=== PATIENT | male | born 1950 | race Native Hawaiian/Other Pacific Islander ===

== ENCOUNTER 2017-12-07 07:18 | Day surgery (SDC) | payer MEDICARE, OTHER ==
[2014-01-15 06:59] VITALS: BMI 19.3
[2017-12-07] MEDS ORDERED: Lidocaine/Epinephrine 1% 1:100000 10 ML IJ ONE (07:26)
[2017-12-07] MEDS ORDERED: Bupivacaine 0.25% 20 ML INJ IJ ONE (07:26)
[2017-12-07 07:50] VITALS: BP 137/75; PULSE 104; RESP 20; TEMP 97.8; O2SAT 96
== END 2017-12-07 10:15 | disposition home or self-care (01) ==
LOC: C.SDS 07:18
PROVIDERS: ATTEND Surgery Surgical Critical Care
DX: K40.90 Unilateral inguinal hernia, without obstruction or gangrene, not specified as recurrent (principal); Z53.9 Procedure and treatment not carried out, unspecified reason

== ENCOUNTER 2017-12-19 06:10 | Day surgery (SDC) | payer MEDICARE, OTHER ==
[2014-01-15 06:59] VITALS: BMI 19.3
[2017-12-19] MEDS ORDERED: ceFAZolin 1 gm FROZEN Premix 2 GM/100 ML ML IVPB ONE (07:26)
[2017-12-19] MEDS ORDERED: Bupivacaine HCl 0.25% PF (10 ml) Inj ONE (07:26)
[2017-12-19] MEDS ORDERED: Lidocaine/Epinephrine 1% 1:100000 10 ML IJ ONE (07:26)
[2017-12-19] MEDS ORDERED: Propofol 10 mg/ml Inj (20 ML) ONE (08:40)
[2017-12-19] MEDS ORDERED: Midazolam 2 MG/2 ML VIAL ONE (08:40)
[2017-12-19] MEDS ORDERED: Rocuronium 10 mg/ml (5 ml) ONE ×2 (08:52→11:46)
[2017-12-19] MEDS: Bupivacaine 0.25% 20 ML INJ IJ ONE ×2 (10:37→12:08)
[2017-12-19] MEDS ORDERED: Esmolol 100 mg/10ml Inj IV ONE (11:03)
[2017-12-19] MEDS ORDERED: Oxycodone/Acetaminophen 5/325 mg Tab PO PRN (12:55)
[2017-12-19] MEDS ORDERED: HYDROmorphone 0.5 mg/0.5 ml ISec IVP PRN (12:56)
--- NOTE | 2017-12-19 13:00 | PCM.SURG1 ---
Surgeon's Initial Post Op Note - Surgeon's Notes Surgeon: Dr. Yoav Reed MD [employer]ob[employer] Repairer: Dr. Mare Liz, PGY2; [facility] [place]-[facility] Type of Anesthesia: General Endo Pre-Operative Diagnosis: Bilateral inguinal hernia Operative Findings: Bilateral indirect inguinal hernia Post-Operative Diagnosis: Same Operation Performed: Robotic assisted Laparoscopic bilateral inguinal hernia repair with mesh Specimen/Specimens Removed: None Estimated Blood Loss: EBL {In ML}: 10 Blood Products Given: N/A Drains Used: No Drains Post-Op Condition: Fair Date of Surgery/Procedure: 12/19/17 Time of Surgery/Procedure: 10:00
[2017-12-19] MEDS ORDERED: Lactated Ringer's 1,000 ML IV ONE (14:00)
[2017-12-19 15:26] VITALS: TEMP 97.7
[2017-12-19 16:41] VITALS: BP 138/78; PULSE 89; RESP 18; O2SAT 96
--- NOTE | 2017-12-22 19:40 | OP ---
PROCEDURE DATE: 12/19/2017 PREOPERATIVE DIAGNOSIS: Bilateral inguinal hernia. POSTOPERATIVE DIAGNOSIS: Bilateral inguinal hernia. PROCEDURES PERFORMED: 1. Robotic right inguinal hernia repair with mesh. 2. Robotic left inguinal hernia repair with mesh. 3. Laparoscopic bilateral TAP block placement. SURGEON: Yoav Reed MD. [employer] CLERK: Mare Liz, PGY-3 resident. ANESTHESIA: General endotracheal tube anesthesia. ESTIMATED BLOOD LOSS: Around 10 mL. DRAINS: None. PATHOLOGY: None. COMPLICATIONS None. INTRAOPERATIVE FINDINGS: The patient had bilateral direct inguinal hernia. DESCRIPTION OF PROCEDURE: On intraoperative steps, this 67-year-old male who was diagnosed with bilateral inguinal hernia and the patient was consented for the robotic bilateral inguinal hernia repair with the mesh, brought to the OR, placed supine on operating table. After induction of anesthesia, the abdomen was prepped and draped in the usual sterile fashion. The supraumbilical transverse incision was made after incising skin and subcutaneous tissue and robotic camera port was placed. Another 3 mm port was placed in upper abdomen and robot was brought in. Camera arm as well as arm 1 and arm 2 were docked and the peritoneum was dissected from the from the left ASIS up to the right ASIS and midline dissection was continued up to the space of Retzius and laterally. First right-sided dissection was done and the peritoneum was from the lateral abdominal wall and dissection was carried down deep up to the sac attachment and the vas deferens and spermatic cord vessels was and inferior dissection was done up to the pelvic brim and now the similar dissection was done on the left side and peritoneum was from the lateral abdominal wall and the dissection was carried down to reduce the hernial sac, vas deferens and spermatic cord vessels was and the inferior dissection was done up to the pelvic brim and after the pelvic brim. After proper peritoneal dissection, the transversalis fascia of both indirect sac were everted and it was tacked in the midline to cover the defects and then a bilateral mesh was placed first on the right side then on the left side. After proper implantation of the mesh, the peritoneum was sutured in the midline with 2-0 Vicryl as well as 3-0 PDS continuous suture and after that the robot was undocked. All the instrument was taken out and the procedure was converted to laparoscopic, a bilateral TAP block was given. A 30:30 mL of Marcaine was given in the transverse abdominal muscle plane block. After that all the port was taken out under vision. Pneumo was deflated and umbilical port site was closed in two layer, the fascia with 0 Vicryl interrupted sutures, skin with a 4-0 Monocryl and dry sterile dressing was applied. The patient tolerated the procedure well. Count of instrument and gauze was correct. There was no apparent complication. The patient was extubated to OR, sent to the postanesthesia care in stable condition. Yoav Reed MD
== END 2017-12-19 16:30 | disposition home or self-care (01) ==
LOC: C.SDS 06:10
PROVIDERS: ATTEND Surgery Surgical Critical Care
DX: K40.20 Bilateral inguinal hernia, without obstruction or gangrene, not specified as recurrent (principal); I10 Essential (primary) hypertension; E78.00 Pure hypercholesterolemia, unspecified; Z95.810 Presence of automatic (implantable) cardiac defibrillator
CPT/HCPCS: 49650; C1781; J0690; J1170; J2001; J2250; J2704; J3010; J7120